=== PATIENT | female | born 1995 | race Caucasian/White ===

== ENCOUNTER 2023-04-29 19:25 | Outpatient (REF) | payer OTHER, SELFPAY ==
[2023-05-05 09:19] LABS: Age Gdln ACOG Testing Note (.); IGP, rfx Aptima HPV ASCU Note (.)
== END 2023-04-29 19:26 | disposition home or self-care (01) ==
LOC: LAB 19:25
PROVIDERS: Visit Provider Obstetrics & Gynecology
DX: R87.610 Atypical squamous cells of undetermined significance on cytologic smear of cervix (ASC-US) (principal); Z11.51 Encounter for screening for human papillomavirus (HPV)
CPT/HCPCS: G0145

== ENCOUNTER 2024-05-16 21:24 | Outpatient (REF) | payer OTHER, SELFPAY | END 2024-05-16 21:25 | disposition home or self-care (01) | LOC: LAB 21:24 | PROVIDERS: Visit Provider Obstetrics & Gynecology | DX: Z01.419 Encounter for gynecological examination (general) (routine) without abnormal findings (principal) | CPT/HCPCS: 88175 ==

== ENCOUNTER 2025-05-23 18:45 | Outpatient (REF) | payer OTHER, SELFPAY ==
--- OUTSIDE RECORDS SUMMARY | 2025-05-23 11:00 | XMS_ITS | Encounter Summary ---
Author Organization [facility] Address [address] [place] [address] Care Team Providers Care Edging Machine Operator Name Role Phone Unavailable Primary Care Provider Unavailabl e Reason for Visit * Reason Comments Well Women Visit Encounter Details Date Type Department Care Team (Late st Contact Info) Description 05/23/2025 11:00 AM EDT Office Visit [facility] [place] [facility] [address] [place] [phone] Gene Booker DO [address] [facility] [address] [place], [facility]11 Well woman exam with routine gynecological exam; Encounter for surveillance of other contraceptive Social History Tobacco Use Types Packs/Day Years Used Date Smoking Tobacco: Every Day Cigarettes 1 9.6 Started: 10/12/2015 Alcohol Use Standard Drinks/Week Comments Never 0 (1 standard drink = 0.6 oz pure alcohol) Caffeine: 1-2 cups/day energy drinks, coffee Comments No Sex and Gender Information Value Date Recorded Sex Assigned at Not on file Legal Sex Female 6:50 PM EDT Gender Identity Not on file Sexual Orientation Not on file documented as of this encounter Last Filed Vital Signs Vital Sign Reading Time Taken Comments Blood Pressure 118/78 05/23/2025 11:26 AM EDT Pulse - - Temperature - - Respiratory Rate - - Oxygen Saturation - - Inhaled Oxygen Concentration - - Weight 67.3 kg (148 lb 6.4 oz) 05/23/2025 11:26 AM EDT Height - - Body Mass Index 27.14 05/16/2024 11:48 AM EDT documented in this encounter Plan of Treatment Upcoming Encounters Date Type Department Care Team (Late st Contact Info) Description 05/29/2026 11:00 AM EDT Procedure Visit [facility] [address] [facility] [place] [phone] Gene Booker DO [address] [place] [address] Scheduled Orders Name Type Priority Associated Diagnoses Orde r Schedule Pap Smear Pathology and Cytology Routine Well woman exam with routine gynecological exam Ordered: 05/23/2025 documented as of this encounter Visit Diagnoses Diagnosis Well woman exam with routine gynecological exam Routine gynecological examination Encounter for surveillance of other contraceptive documented in this encounter
--- OUTSIDE RECORDS SUMMARY | 2025-05-23 18:48 | XMS_ITS | Encounter Summary ---
Author Organization [facility] Address [address] [place] [address] Care Team Providers Care Router Setter Name Role Phone Unavailable Primary Care Provider Unavailabl e Encounter Details Date Type Department Care Team (Late Contact Info) Description 05/25/2024 Orders Only [facility] [address] [facility] [place] [address] Roselia Comer LPN Social History Tobacco Use Types Packs/Day Years [...] on file documented as of this encounter Plan of Treatment Upcoming Encounters Date Type Department Care Team (Late st Contact Info) Description 05/29/2026 11:00 AM EDT Procedure Visit [facility] [address] [facility] [place] [address] Gene Booker DO [address] [facility] [address] [place] [place], [place] [id number] documented as of this encounter Procedures Procedure Name Priority Date/Time Associated Diagnosis Comments PAP SMEAR Routine 05/20/2024 12:00 AM EDT documented in this encounter Results * Pap Smear (05/20/2024 12:00 AM EDT) Swab Cervical swab / Unknown us Gene Booker DO LAB CYTOLOGY ORDERABLES Final Re sult EXTERNAL LAB documented in this encounter Visit Diagnoses Not on filedocumented in this encounter
--- OUTSIDE RECORDS SUMMARY | 2025-05-23 18:48 | XMS_ITS | Encounter Summary ---
Author Organization [facility] Address [address] [place] [address] Care Team Providers Care District Fire Chief Name Role Phone Unavailable Primary Care Provider Unavailabl e Encounter Details Date Type Department Care Team (Late Contact Info) Description 09/07/2024 Abstract [facility] [place] [phone] Gene Booker DO [address] [place], [place] [address] Social History Tobacco Use Types Packs/Day Years [...] Description 05/29/2026 11:00 AM EDT Procedure Visit [facility] [address] [place] [phone] Gene Booker DO [address] [place], [facility]11 documented as of this encounter Visit Diagnoses Not on filedocumented in this encounter
--- OUTSIDE RECORDS SUMMARY | 2025-05-23 18:48 | XMS_ITS | Encounter Summary ---
Author Organization [facility] Address [address] [place] [address] Care Team Providers Care Director Educational Radio Name Role Phone Unavailable Primary Care Provider Unavailabl e Encounter Details Date Type Department Care Team (Late st Contact Info) Description 05/22/2025 Telephone [facility] [address] [place] [phone] Rosario Feliz LPN [address] [place] [phone] Social History Tobacco Use Types Packs/Day Years [...] on file documented as of this encounter Miscellaneous Notes * Telephone Encounter - Rosario Feliz LPN - 05/22/2025 9:14 AM EDT Pt called stating that she has a PAP scheduled for tomorrow but she started period over the weekendand wants to make sure that it is still okay to come in tomorrow. I called pt back to let her know that as long as her period is not super heavy, that she is still able to come in. PVU documented in this encounter Plan of Treatment Upcoming Encounters Date Type Department Care Team (Late st Contact Info) Description 05/29/2026 11:00 AM EDT Procedure Visit [facility] [address] [facility] [phone] Gene Booker DO [address] [place] [address] documented as of this encounter Visit Diagnoses Not on filedocumented in this encounter
--- OUTSIDE RECORDS SUMMARY | 2025-05-23 18:48 | XMS_ITS | Encounter Summary ---
Author Organization [facility] Address [address] [place] [address] Care Team Providers Care Systems Test Engineer Name Role Phone Unavailable Primary Care Provider Unavailabl e Encounter Details Date Type Department Care Team (Latest Contact Info) Description 05/23/2025 Travel Social History Tobacco Use Types Packs/Day Years [...] 05/29/2026 11:00 AM EDT Procedure Visit [facility] [place] [facility] [address] [facility] [place] [phone] Gene Booker DO [address] [facility] [address] [place], [facility]11 documented as of this encounter Visit Diagnoses Not on filedocumented in this encounter
--- OUTSIDE RECORDS SUMMARY | 2025-05-23 18:48 | XMS_ITS | Encounter Summary ---
Author Organization [facility] Address [address] [place] [address] Care Team Providers Care International Relations Professor Name Role Phone Unavailable Primary Care Provider Unavailabl e Encounter Details Date Type Department Care Team (Late Contact Info) Description 05/23/2025 Bamboo flowsheet [facility] [address] [place] [phone] Gene Booker DO [address] [place], [place] [address] Social History Tobacco Use Types Packs/Day Years [...] EDT Procedure Visit [facility] [address] [place] [phone] Gene Booker DO [address] [place], [facility]11 documented as of this encounter Visit Diagnoses Not on filedocumented in this encounter
--- OUTSIDE RECORDS SUMMARY | 2025-05-23 18:48 | XMS_ITS | Clinical Summary ---
Author Organization [facility] Address [address] [place] [address] Care Team Providers Care Tobacco Packing Machine Operator Name Role Phone Unavailable Primary Care Provider Unavailabl e Allergies No known active allergies Medications Adderall 5 MG tablet Take 5 mg by mouth in the morning and 5 mg before bedtime. 4 Active levonorgestrel-et hinyl estradiol (Jolessa) 0.15-0.03 MG tabletIndications :Encounter for surveillance of other contraceptive Take 1 tablet by mouth Daily 84 tablet 3 5 05/23/20 26 Active levonorgestrel-et hinyl estradiol (Jolessa) 0.15-0.03 MG tabletIndications :Encounter for surveillance of other contraceptive Take 1 tablet by mouth Daily 84 tablet 5 05/23/20 25 Discontinu ed(Reorder ) Active Problems Problem Noted Date Diagnosed Date Pain, upper back 05/20/2024 Encounters Date Type Department Care Team Description 05/23/2025 11:00 AM EDT Office Visit [facility]ERNY BAE[facility] [address] [place] [address] [place] [address] Gene Booker DO Well woman exam with routine gynecological exam; Encounter for surveillance of other contraceptive 05/23/2025 Bamboo flowsheet [facility] [address] [place], [place] [address] [phone] Gene Booker DO 05/23/2025 Travel 05/22/20[place] [phone] Trini RosarioJEAN PIERRE olson from Last 3 Months Family History Medical History Relation Name Comments Cancer Father Virgil Cancer Paternal Grandfather Don Hypertension Paternal Grandfather Don Cancer Paternal Grandmother Iris Relation Name Status Comments Father Virgil Mother Alive Paternal Grandfather Don Alive Paternal Grandmother Iris Social History Tobacco Use Types Packs/Day Years Used Date Smoking Tobacco: Every Day Cigarettes 1 9.6 Started: 10/12/2015 Tobacco Cessation:Ready to Q uit: Not Asked; Counseling Given: Not Answered Alcohol Use Standard Drinks/Week Comments Never 0 (1 standard drink = 0.6 oz pure alcohol) Caffeine: 1-2 cups/day energy drinks, coffee Comments No Sex and Gender Information Value Date Recorded Sex Assigned at Not on file Legal Sex Female 6:50 PM EDT Gender Identity Not on file Sexual Orientation Not on file Last Filed Vital Signs Vital Sign Reading Time Taken Comments Blood Pressure 118/78 05/23/2025 11:26 AM EDT Pulse - - Temperature - - Respiratory Rate - - Oxygen Saturation - - Inhaled Oxygen Concentration - - Weight 67.3 kg (148 lb 6.4 oz) 05/23/2025 11:26 AM EDT Height 157.5 cm (5' 2 ) 05/16/2024 11:48 AM EDT Body Mass Index 27.14 05/16/2024 11:48 AM EDT Plan of Treatment Upcoming Encounters Date Type Department Care Team (Late st Contact Info) Description 05/29/2026 11:00 AM EDT Procedure Visit [facility] [address] [place] [phone] Gene Booker DO [address] [place] [address] Insurance [employer]
--- OUTSIDE RECORDS SUMMARY | 2025-05-23 18:48 | XMS_ITS | Clinical Summary ---
Author Organization [facility] Address [id number] [address] [place] [address] Care Team Providers Care Stained Glass Glazier Helper Name Role Phone Lidia Godinez APRN-MERCHANDISE ASSOCIATE Primary Care Provider U robailable Allergies No known active allergies Medications ondansetron (ZOFRAN) 4 mg tablet Take 4 mg by mouth every 8 (eight) hours as needed for nausea or vomiting. Active omeprazole (PriLOSEC) 20 mg capsule Take 20 mg by mouth daily. Active progesterone (FIRST-PROGESTER ONE VGS) 200 mg suppository Insert 200 mg into the vagina nightly. Active PNV no.95/ferrous fum/folic ac ( ORAL) Take by mouth. Active Active Problems Problem Noted Date Diagnosed Date Rh negative status during 08/20/2021 Tobacco smoking affecting 08/20/2021 Poor growth affecting management of mother in third trimester 08/20/2021 Sciatica 08/20/2021 Nausea and vomiting during 06/20/2021 Short cervix affecting 04/19/2021 Family History Medical History Relation Name Comments Cancer Father STOMACH Hypertension Paternal Grandfather Relation Name Status Comments Father Mother Alive Paternal Grandfather Social History Tobacco Use Types Packs/Day Years Used Date Smoking Tobacco: Every Day Cigarettes Smokeless Tobacco: Never Tobacco Cessation:Ready to Q uit: Yes; Counseling Given: Yes Comments:states a couple a day Alcohol Use Standard Drinks/Week Comments Not Currently 0 (1 standard drink = 0.6 oz pur e alcohol) Comments No Sex and Gender Information Value Date Recorded Sex Assigned at Female 08/18/2021 4:18 PM EST Legal Sex Female 1:07 PM EDT Gender Identity Female 08/18/2021 4:18 PM EST Sexual Orientation Not on file Last Filed Vital Signs Vital Sign Reading Time Taken Comments Blood Pressure 119/66 08/20/2021 1:49 PM EST Pulse 85 08/20/2021 1:49 PM EST Temperature - - Respiratory Rate - - Oxygen Saturation - - Inhaled Oxygen Concentration - - Weight 76.7 kg (169 lb) 08/20/2021 1:49 PM EST Height - - Body Mass Index - - Plan of Treatment Health Maintenance Due Date Last Done Comments Depression Screening 2009 Tobacco Screening 2009 Adult BMI Screening 2015 Pap Smear 2018 DTaP,Tdap and Td Vaccines (7 - Td or Tdap) 12/29/2024 12/29/2014, 06/03/2010, 05/24/2003, Additional history exists Influenza Vaccine 06/12/2025 06/03/2010 Medical Devices Not on file Insurance [employer] Member Subscriber Plan / Payer (Ef fective 2015-Present) Name:Berna Pleitez Relation to Subscriber:Other Relationship Name:BARRY PLEITEZ Date of :1959 (Home) Address: [address] [place], [place] [id number] Payer ID:Not on file Type:Not on file Address: [address] [place] [phone] [employer] Care Teams Stained Glass Glazier Helper Relationship Specialty Start Date End Date Lidia Godinez APRN-MERCHANDISE ASSOCIATE PCP - General Nurse Practitioner 08/20/21
--- OUTSIDE RECORDS SUMMARY | 2025-05-23 18:48 | XMS_ITS | Encounter Summary ---
Author Organization [facility] Address [address] [place] [address] Care Team Providers Care Pre Certification Specialist Name Role Phone Unavailable Primary Care Provider Unavailabl e Encounter Details Date Type Department Care Team (Late Contact Info) Description 12/13/2024 Abstract [facility] [place] [phone] Gene Booker DO [address] [place], [place] [address] Social History Tobacco Use Types Packs/Day Years [...] Procedure Visit [facility] [address] [place] [phone] Gene Booker DO [address] [place], [facility]11 documented as of this encounter Visit Diagnoses Not on filedocumented in this encounter
== END 2025-05-23 18:46 | disposition home or self-care (01) ==
LOC: LAB 18:45
PROVIDERS: Visit Provider Obstetrics & Gynecology
DX: Z01.419 Encounter for gynecological examination (general) (routine) without abnormal findings (principal)
CPT/HCPCS: 88175